=== PATIENT | male | born 1970 ===

== ENCOUNTER 2018-05-14 11:55 | Emergency (ER) | payer OTHER ==
[~2018-05-14] VITALS: Ht 177.8 cm; Wt 104.5 kg
[2018-05-14] MEDS ORDERED: FLEXERIL5 MG PO (12:35)
[2018-05-14] MEDS ORDERED: VOLTAREN1%GEL TOP (12:35)
[2018-05-14] MEDS ORDERED: MOTRIN400 MG PO (12:35)
[2018-05-14 12:46] VITALS: BP 149/105
== END 2018-05-14 13:08 | disposition home or self-care (01) | DRG 556 ==
LOC: ED 11:55
DX: M25.512 Pain in left shoulder (principal); I10 Essential (primary) hypertension; F17.210 Nicotine dependence, cigarettes, uncomplicated

== ENCOUNTER 2018-07-14 15:06 | Emergency (ER) | payer OTHER ==
[~2018-07-14] VITALS: Ht 177.8 cm; Wt 109.1 kg
[~2018-07-14 15:06] MED LIST: FLEXERIL5 MG PO; MOTRIN400 MG PO; VOLTAREN1%GEL TOP
[2018-07-14] MEDS ORDERED: ZPAK PO (15:47)
[2018-07-14] MEDS ORDERED: CHERATUSSIN PO (15:47)
[2018-07-14 15:51] VITALS: BP 153/89
== END 2018-07-14 15:58 | disposition home or self-care (01) | DRG 153 ==
LOC: ED 15:06
DX: J06.9 Acute upper respiratory infection, unspecified (principal); R09.81 Nasal congestion; R05 Cough; R09.89 Other specified symptoms and signs involving the circulatory and respiratory systems; F17.210 Nicotine dependence, cigarettes, uncomplicated

== ENCOUNTER 2018-07-30 09:05 | Emergency (ER) | payer OTHER ==
[~2018-07-30] VITALS: Ht 177.8 cm; Wt 100.0 kg
[~2018-07-30 09:05] MED LIST changes: +CHERATUSSIN PO; +ZPAK PO
[2018-07-30] MEDS ORDERED: TRAZODONE50 MG PO (09:22)
[2018-07-30 11:35] LABS: HEMATOCRIT 48.2 % (39.0-50.0); HEMOGLOBIN 16.3 g/dl (14.0-18.0); IMMATURE GRANULOCYTES 0.6 % (0.0-5.0); MEAN CELL VOLUME 87.5 fL CALC (80.0-100.0); MEAN CORPUSCULAR HGB 29.6 pG CALC (26.0-32.0); MEAN CORPUSCULAR HGB CONC 33.8 g/L CALC (32.0-36.0); NEUT# 10.52 thou/uL (1.82-7.42); RED BLOOD COUNT 5.51 mill/uL (4.70-6.10); RED CELL DISTRI WIDTH 12.8 % (11.5-15.5)
[2018-07-30 11:55] LABS: ANION GAP 16 (6-22 (CALC)); BUN 14 mg/dL (9-20); BUN/CREATININE RATIO 24 (12-20 (CALC)); CARBON DIOXIDE 20 mmol/l (22-30); CHLORIDE 106 mmol/l (95-108); CREATININE 0.6 mg/dL (0.7-1.3); GFR > 60 ML/MIN (>=60 (CALC)); GFR FOR AFR.AMER. > 60 ML/MIN (>=60 (CALC)); SODIUM 138 mmol/l (137-146)
[2018-07-30] MEDS ORDERED: ALBUTEROL SUL0.083 % IN (12:18)
[2018-07-30] MEDS ORDERED: PREDNISONE50 MG PO (12:18)
[2018-07-30] MEDS ORDERED: PROAIR HFA108 MCG/AC PO (12:18)
[2018-07-30 12:30] VITALS: BP 152/88
== END 2018-07-30 12:30 | disposition home or self-care (01) | DRG 192 ==
LOC: ED 09:05
PROVIDERS: Family Medicine
DX: J44.1 Chronic obstructive pulmonary disease with (acute) exacerbation (principal); I10 Essential (primary) hypertension; F17.210 Nicotine dependence, cigarettes, uncomplicated